=== PATIENT | female | born 1960 | race Caucasian/White ===

== ENCOUNTER → 2017-07-23 | Day surgery (SDC) | payer OTHER ==
[~2017-07-23] VITALS: Ht 170.2 cm; Wt 80.1 kg
[~2017-07-23] MED LIST: AMLO5TAB2 PO; BACITRACIN TOP OINT 15 GM TUBE ONE; BUPIVACAINE/EPINEPHRINE 0.25% 50 ML VIAL ONE; BUPR450T PO; BUSP15TA PO; CHLORHEXIDINE GLUCONATE 2 % 1 PACK (2 CLOTHS) TOPICAL PRN; CITA40TA4 PO; DO NOT ADM ANY ANTICOAGULANT DRUGS PRN; FAMOTIDINE 20 MG/2 ML VIAL ONE; HYDROmorphone HCL PF 1 MG/ML VIAL IV PRN; INSULIN HUMAN REGULAR 1,000 UNITS/10 ML VIAL SQ PRN; LACT10SO5 PO; LACTATED RINGER'S 1000 ML INJ 1,000 ML IV ONE; LACTATED RINGER'S 1000 ML IV PRN; LIDOCAINE 1%/EPINEPHrine 1:100,000 SOLN 20 ML VIAL I-DERMAL ONE; LORA-392 PO; LOSA100T PO; MAGN500T2 PO; MELO-1 PO; METO50TA PO; METOPROLOL TARTRATE 25 MG TAB PO PRN; MIDAZOLAM HCL 2 MG/2 ML VIAL ONE; OMEP40CA2 PO; ONDANSETRON HCL 4 MG/2 ML VIAL IV PUSH ONE; POVIDONE IODINE 5% (ANTISEPSIS KIT) 4 APPLICATIONS EACH NARE PRN; PRAV40TA2 PO; PROPOFOL 200 MG/20 ML AMP IV ONE; SODIUM CHLORID 0.9% 500 ML IV PRN; TAMO20TA6 PO; TRAZ50TA12 PO; VITA1000 PO; VITA500T83 PO; VITACAP7 PO; ceFAZolin 2 GM PREMIX 50 ML IV SCH; ePHEDrine/NS 25 MG/5 ML SYR IV ONE; fentaNYL CITRATE 250 MCG/5 ML AMP ONE; oxyCODONE/ACETAMINOPHEN 7.5 MG/325 MG TAB PO PRN
[2017-07-23 08:16] LABS: AUTOMATED NEUTROPHIL # 2.2 TH/MM3 (1.8-7.7); BASOPHIL % 1.1 % (0.0-2.0); EOSINOPHIL # 0.1 TH/MM3 (0-0.4); EOSINOPHIL % 2.5 % (0.0-4.0); HEMATOCRIT 41.6 % (35.0-46.0); HEMO FLAGS DIFF FINAL; LYMPH % 24.4 % (9.0-44.0); LYMPHOCYTE # 0.9 TH/MM3 (1.0-4.8); MEAN CORPUSCULAR HGB CONC 33.3 % (32.0-36.0); MONO % 12.7 % (0.0-8.0); NEUT % 59.3 % (16.0-70.0); PLATELET COUNT 196 TH/MM3 (150-450); RED BLOOD COUNT 4.47 MIL/MM3 (4.00-5.30); RED CELL DISTRIBUTION WIDTH 13.5 % (11.6-17.2); WHITE BLOOD COUNT 3.8 TH/MM3 (4.0-11.0)
[2017-07-23 13:07] VITALS: BP 118/61; PULSE 52; RESP 20; TEMP 98.6; O2SAT 99
--- NOTE | 2017-07-28 09:13 | MP ---
cc: JOSTIN WAKEFIELD M.D. DATE OF SURGERY 07/23/2017 PREOPERATIVE DIAGNOSES Basal cell carcinoma right earlobe POSTOPERATIVE DIAGNOSIS Basal cell carcinoma right earlobe OPERATION Excision, BCC right earlobe of 1.5 x 2 cm excision and full-thickness skin graft from the right neck. SURGEON Jostin Wakefield MD ANESTHESIA General INDICATIONS This is a 56-year-old white female with a right ear basal cell carcinoma who originally had a small lesion approximately over a year ago and had a history of biopsy that showed invasive basal cell, healed over and did not have any clear residual clinical lesion and no further surgery at that time. Over the past year, she developed a nodule in the same area more on the deep side of the tissues at first and possibly encroaching upon her ear lobe / antihelix groove area. She was seen in [facility] and the excision and frozen section process was explained. Most of the tumor being somewhat on the deep side,excision with a wider margin which seems to be thicker in a portion towards the helical cartilage that needs to be removed and a reconstruction with a full thickness skin graft was explained and the patient is willing to go ahead and have surgery. She understands that the skin graft may or may not survive completely and may need reconstruction by another technique or a second graft may be needed. The patient also understands that compared to the normal side she will have some degree of asymmetry remaining including color, texture and thicker. The skin graft by itself will not have much sensation to it and a piercing of the ear will have to wait until several months after the surgery. PROCEDURE The patient was brought to the operating room, was given supine position. Anesthesia was started. The prep was done. IV antibiotic had been given. Time-out was called and completed. The preoperative markings were reinforced. The markings had been made mainly by palpating the periphery of the tumor in the deep tissue and then taking a 4 mm border on the helical and earlobe border itself. The border was split just behind the midline and posteriorly the area was injected with lidocaine 1% with epinephrine and was somewhat voluminous to allow for better dissection and hemostasis. The incision was made through the periphery of the outlined area and then was taken straight down to the posterior one-third of the thickness of the earlobe tissue with seemed to adequate clinically to remove the deepest portion of the tumor. This was maintained in an even level throughout the specimen removal. The specimen was marked superiorly with a superior stitch and sent for frozen section. Hemostasis was completed with very light Bovie used. Minimal bleeding was encountered. The neck skin was palpated in several places to pick thickest possible area without any hair growth. This was more towards the border of the trapezius muscle in the lower part. An oversized graft was harvested taking the full-thickness skin and fat. The pad was carefully removed with scissors and also on one side of edge of the graft, additional thinning was carried out for approximately 4 mm from the border allowing this portion of the edge to be folded over to create a sharper ear border. First, the tacking sutures were placed to complete the periphery of graft placement including folding the border over and then pinching the lobe and the graft together. Overall size of the graft was assessed. It was trimmed and the antihelical border was matched superiorly and was carried into the graft itself with a marking pen. The graft was then flipped to the dermal side and a matching strip of dermis was removed to create the thin part of the graft allowing for formation of the antihelical fold to some extent. The remaining graft was first sutured on the medial border itself, then a [id number] 5-0 Vicryl interrupted slightly wide sutures were used to recreate the anterior helical border and the remainder of the graft also sutured in place tacking it particularly on the border to match the thickness of the surrounding tissues. The graft was stabilized with Xeroform pledgets on both sides and the frozen section report issued in the meantime indicated clear margins both deep peripherally. The small portion of the cartilage helical border that had been taken was also free of any tumor involvement. The padded dressing was secured to the graft with through and through Prolene sutures. The donor site was closed with deep and inverting Vicryl sutures. A sterile dressing was applied to the donor site as well. The patient remained stable through the procedure. Intraoperative blood loss minimal, less than 5 cc. No complications. signed, not fully reviewed MD GLORIA Yang/DMITRI /6:45 PM /9:08 AM [facility]ITALMarion
== END | disposition home or self-care (01) ==
LOC: HSDC 07:08
PROVIDERS: ATTEND Plastic Surgery
DX: C44.212 Basal cell carcinoma of skin of right ear and external auricular canal (principal); I10 Essential (primary) hypertension; E78.5 Hyperlipidemia, unspecified; F33.9 Major depressive disorder, recurrent, unspecified; M85.80 Other specified disorders of bone density and structure, unspecified site; M81.0 Age-related osteoporosis without current pathological fracture; K21.9 Gastro-esophageal reflux disease without esophagitis; Z87.891 Personal history of nicotine dependence; Z85.3 Personal history of malignant neoplasm of breast; Z79.899 Other long term (current) drug therapy
CPT/HCPCS: 00300; 11642; 15260; 85025; 88305; 88331; J0690; J2250; J2405; J3010; J7120